=== PATIENT | female | born 1985 | race Caucasian/White ===

== ENCOUNTER 2019-03-17 11:59 | Inpatient (IN) | payer BC ==
[2019-03-17] MEDS ORDERED: Tranexamic Acid 1,000 MG in Sodium Chloride 0.9% 100 ML IV PRN ×2 (12:03→15:26)
[2019-03-17] MEDS ORDERED: Sodium Chloride 0.9% 10 ML Syringe FLUSH PRN (12:03)
[2019-03-17] MEDS ORDERED: Citric Acid/Sodium Citrate Solution 30 ML Cup PO ONE (12:03)
[2019-03-17] MEDS ORDERED: Oxytocin/Normal Saline 30 UNIT/500 ML BAG IV SCH (12:15)
[2019-03-17] MEDS ORDERED: Lactated Ringers 1,000 ML IV SCH ×2 (12:15→15:30)
[2019-03-17] MEDS: Lactated Ringers 1,000 ML IV SCH ×3 (12:35→17:51)
[2019-03-17] MEDS ORDERED: Oxytocin/Normal Saline 60 UNIT/1,000 ML BAG ONE (12:44)
[2019-03-17] MEDS ORDERED: ceFAZolin 2 GM in Premix Bag 1 BAG IV ONE (13:32)
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
[2019-03-17] MEDS ORDERED: ePHEDrine 50 MG/ML SDV IVPUSH PRN (15:26)
[2019-03-17] MEDS ORDERED: diphenhydrAMINE 50 MG/ML SDV IVPUSH PRN (15:26)
[2019-03-17] MEDS ORDERED: Docusate Sodium 100 MG Cap PO PRN (15:26)
[2019-03-17] MEDS ORDERED: Carboprost Tromethamine 250 MCG/1 ML Amp IM ONE (15:26)
[2019-03-17] MEDS ORDERED: Acetaminophen/oxyCODONE 325-5 MG Tab PO PRN ×2 (15:26)
[2019-03-17] MEDS ORDERED: Naloxone 2 MG/2 ML Syringe IVPUSH PRN (15:26)
[2019-03-17] MEDS ORDERED: Misoprostol 400 MCG (4 X 100 MCG TAB) RECTAL PRN (15:26)
[2019-03-17] MEDS ORDERED: Methylergonovine 0.2 MG/1 ML Amp IM PRN (15:26)
[2019-03-17] MEDS ORDERED: Ondansetron 4 MG/2 ML SDV IV PRN (15:26)
[2019-03-17] MEDS: Simethicone 80 MG Tab.Chew PO SCH ×2 (17:00→20:44)
[2019-03-17] MEDS ORDERED: Famotidine 20 MG/2 ML SDV IVPUSH PRN (17:02)
[2019-03-17] MEDS: Ketorolac 30 MG/ML SDV IVPUSH SCH (20:44)
[2019-03-17] MEDS: ceFAZolin 1 GM in Premix Bag 1 BAG IV SCH (21:19)
[2019-03-18] MEDS: Lactated Ringers 1,000 ML IV SCH (01:11)
[2019-03-18] MEDS: Ketorolac 30 MG/ML SDV IVPUSH SCH ×2 (03:39→08:52)
[2019-03-18] MEDS: ceFAZolin 1 GM in Premix Bag 1 BAG IV SCH ×2 (05:41→13:28)
--- NOTE | 2019-03-18 08:24 | PCM.SN ---
- Free Text/Narrative Note: Subjective: Patient is post-op day 1 from repeat LTc-sec Some nausea with 2 episodes of vomiting last night. Ambulating. Tolerating liquid diet- will eat breakfast this morning. Urinary catheter still in place- will get removed later this morning. Bleeding minimal. Small amount of blood on bandage. No cramping. No fever, chills, SOB, chest pain. Objective: Vitals: T97.3; BP87/57; RR16; P78 Cardiac: RRR, no murmur Pulm: Lungs clear to auscultation bilaterally. Abdomen: uterus firm and palpated 2 cm below umbilicus. No tender. Dressing is in place with small amount of bleeding noticed on outside of the bandage. Extremities: no swelling. compression stockings are on. Labs: RBC 3.63; Hbg 10.2; Hct 31.4 Assessment/plan: Post-op day 1 from repeat LT c-sec. doing well. Continue routine post- cares with education. Patient was seen by myself and Dr. Norris, assessment and plan are under advisement of Dr. Norris. Isaías Lovell, MS-III
--- NOTE | 2019-03-18 08:43 | OR ---
DATE: 03/17/2019 PREOPERATIVE DIAGNOSES: 1. A 34-year-old white female, G2, P1, at 38 weeks' gestation. 2. Spontaneous rupture of membranes. 3. Prior section. 4. A positive blood type. 5. Rubella nonimmune. 6. Group B strep negative. POSTOPERATIVE DIAGNOSES: 1. A 34-year-old, G2, now P2. 2. Viable female , scores 7 and 9, 3430 g/7 pounds 9 ounces. 3. Thirty eight weeks' gestation. 4. Repeat low transverse section. 5. . 6. Spontaneous rupture of membranes. 7. Prior section. 8. A positive blood type. 9. Rubella nonimmune. 10.Group B strep negative. PROCEDURE: Urgent repeat low transverse section. ASSISTANTS: Lizzy Sky MD; Isaías Lovell MS-III. ANESTHESIA: Spinal with excellent results. ESTIMATED BLOOD LOSS: 400 mL. COMPLICATIONS: None. FINDINGS: This delightful 34-year-old 2, para 1, presented to the clinic at 38 weeks' gestation with spontaneous rupture of membranes. She was subsequently admitted to the hospital. A nonstress test was reassuring. She received 2 g of Ancef IV for preop antibiotics. She was scheduled next week for her elective . However, due to the ruptured membranes, we elected to proceed with her repeat today. Her CBC was reassuring. DESCRIPTION OF PROCEDURE: She underwent spinal anesthesia with excellent results. A Mercado catheter was placed, and she was prepped and draped in usual sterile manner. Surgical marker had been used to zeferino her previous Pfannenstiel incision. A time-out was performed in my presence. A scalpel was used to incise the skin. Electrocautery was used down through the subcutaneous tissue to the fascia, which was divided transversely. Superior and inferior fascial flaps were developed with sharp and blunt dissection. The rectus was identified and divided in the midline. The peritoneum was identified and entered bluntly. The incision was opened until we had excellent visualization of the lower uterine segment. A large Isaías retractor was placed without difficulty. A stab incision was made into the lower uterine segment and extended bilaterally with blunt dissection. Bandage scissors were used to extend the uterine incision on the right side in a caudad direction with good results. The vertex of the baby was then visible and clear fluid was noted in the amniotic sac. The vertex was elevated up into the incision. Cord was noted to be looped around the neck, but it was loose and easily reduced. Vertex was delivered followed by the shoulders and the remainder of the . The father then announced that the gender was female. The cord was doubly clamped and cut and the baby was carried to the waiting nursery staff by Dr. Romero. A cord blood sample was obtained. The time of was noted to be 1436. scores were 7 and 9 at one and five minutes respectively, and the baby's weight was found to be 3430 g or 7 pounds 9 ounces. Baby had a strong cry at , and was dried, stimulated, and bulb suctioned, and brought up to the mom for [id number] contact, bonding, and breast-feeding. The placenta was removed and later inspected and found to be complete intact. Three-vessel cord was noted, and a marginal/[place] cord insertion. Appeared to be completely within normal limits. The uterus was wiped clean and dry, and the cervix was easily noted. The uterine incision edges were grasped with Jon forceps, and the uterus was closed with a running locking 0 Vicryl suture with excellent results. Incision was inspected and found to be hemostatic. Tubes and ovaries appeared within normal limits. Cyst of Morgagni was noted on the right side. The retractor was removed, and the gutters were inspected, found to be dry with no sign of clots. The final inspection appeared to be hemostatic. The area was irrigated, aspirated, and free of all clots. No sign of active bleeding. Once again, the incision was inspected and found to be clean, hemostatic. Peritoneum was closed with a running Vicryl suture with good results. The fascia was then closed with Maxon loop suture with good results. It was somewhat difficult due to the thick scarring. The subcutaneous area was then irrigated. Bleeders were electrocauterized, and the skin brought together with jessie. All instrument and sponge counts were correct. The patient tolerated the procedure well. Uterus remained firm, and Pitocin IV was running per protocol. The patient did well and was transferred to recovery in good condition with Pitocin running IV as noted. She continued to drain clear urine. Her estimated blood loss was 400 mL, and she is in good condition. The baby is [id number] and recovery with her. Both mom and baby will be followed with and postop and nursery routine orders and cares. Further management pending their clinical course. [facility] /[id number]
[2019-03-18] MEDS: Prenatal Multivitamin with Calcium/Folic Acid/Iron Tab PO SCH (08:51)
[2019-03-18] MEDS: Simethicone 80 MG Tab.Chew PO SCH ×4 (08:51→21:54)
[2019-03-18] MEDS ORDERED: Measles, Mumps & Rubella Vaccine 0.5 ML SDV SUBCUT ONE (09:00)
[2019-03-18] MEDS ORDERED: Oxytocin/Normal Saline 30 UNIT/500 ML BAG IV ONE (11:07)
[2019-03-18] MEDS: Acetaminophen 325 MG Tab PO PRN ×2 (13:33→21:54)
[2019-03-18] MEDS: Ibuprofen 800 MG Tab PO PRN (16:47)
[2019-03-19] MEDS: Acetaminophen 325 MG Tab PO PRN ×4 (02:03→20:04)
[2019-03-19] MEDS: Ibuprofen 800 MG Tab PO PRN ×3 (02:04→20:03)
[2019-03-19] MEDS: Calcium Carbonate 500 MG Tab.Chew PO PRN ×2 (02:49→20:02)
--- NOTE | 2019-03-19 07:42 | PCM.SN ---
- Free Text/Narrative Note: 03/19/2019 Subjective: Patient is post-op day 2 from repeat LTc-sec Ambulating. Tolerating regular diet. Urinating, stooling normally. Bleeding minimal. Small amount of blood on bandage. No cramping. going well. No fever, chills, SOB, chest pain. No concerns. Objective: Vitals: T98.4; BP100/62; RR16; P84; O2 sat 98% Cardiac: RRR, no murmur Pulm: Lungs clear to auscultation bilaterally. Abdomen: uterus firm and palpated 2 cm below umbilicus. Non tender. Dressing is in place with small amount of blood noticed on outside of the bandage. Extremities: no swelling. compression stockings are on. Labs: RBC 3.41; Hbg 9.7; Hct 29.8; platelets 245 Assessment/plan: Post-op day 2 from repeat LT c-sec. doing well. Continue routine post- cares with education. Patient was seen by myself and Dr. Norris, assessment and plan are under advisement of Dr. Norris. Isaías Lovell, MS-III
[2019-03-19] MEDS: Simethicone 80 MG Tab.Chew PO SCH ×4 (09:07→20:02)
[2019-03-19] MEDS: Prenatal Multivitamin with Calcium/Folic Acid/Iron Tab PO SCH (09:08)
[2019-03-19] MEDS ORDERED: Ketorolac 30 MG/ML SDV IVPUSH ONE (14:17)
[2019-03-19] MEDS ORDERED: Promethazine 25 MG/ML SDV ONE (14:17)
[2019-03-19] MEDS ORDERED: Ondansetron 4 MG/2 ML SDV IV ONE (14:17)
[2019-03-19] MEDS ORDERED: Lactated Ringers 1,000 ML IV ONE (14:17)
[2019-03-19] MEDS ORDERED: ePHEDrine 50 MG/ML SDV IV ONE (14:17)
[2019-03-19] MEDS ORDERED: Dexamethasone 4 MG/ML SDV IV ONE (14:17)
[2019-03-19] MEDS ORDERED: Sodium Bicarbonate 4.2% 2.5 MEQ/5 ML SDV ONE (14:17)
[2019-03-19] MEDS ORDERED: Morphine PF 1 MG/ML Amp ONE (14:17)
[2019-03-20] MEDS: Acetaminophen 325 MG Tab PO PRN ×2 (01:53→08:37)
[2019-03-20] MEDS: Ibuprofen 800 MG Tab PO PRN (04:09)
--- NOTE | 2019-03-20 08:16 | PCM.DCSUM1 ---
Discharge Summary - Hospital Course Free Text/Narrative:: Patient is post-op day 3 from repeat [facility]-sec Ambulating. Tolerating regular diet. Urinating, stooling normally. Bleeding minimal. Bandage was removed. No cramping. going well. No fever, chills, SOB, chest pain. No concerns. Brief History: Patient presented to the clinic with SROM and received an urgent with no complications. Delivered healthy, viable female infant. - Discharge Data Discharge Date: 03/20/19 Discharge Disposition: Home, Self-Care 01 Condition: Good - Discharge Diagnosis/Problem(s) (1) Delivery by section of full-term infant SNOMED Code(s): 622458156 ICD Code: O82 - ENCOUNTER FOR DELIVERY WITHOUT INDICATION Status: Acute Current Visit: Yes - Patient Summary/Data Consults: Consultations 03/17/19 15:52 Consult to Interface Control Officer [CONS] Routine - Patient Instructions Diet: Regular Diet as Tolerated Activity: No Lifting Over 20 Pounds, Rest and Relax Today Activity, Other: Pelvic rest 4 weeks Driving: May Drive Today Showering/Bathing: May Shower Wound/Incision Care: Keep Operative Site/Wound Site Clean and Dry Notify Provider of: Fever, Increased Pain, Swelling and Redness, Drainage, Nausea and/or Vomiting - Discharge Plan *PRESCRIPTION DRUG MONITORING PROGRAM REVIEWED*: Not Applicable *COPY OF PRESCRIPTION DRUG MONITORING REPORT IN PATIENT TAMIKO: Not Applicable Home Medications: Home Meds Cholecalciferol (Vitamin D3) [Vitamin D3] 400 units PO DAILY 12/02/15 [History] Ferrous Sulfate 325 mg PO BID 12/02/15 [History] PNV95/Ferrous Fumarate/FA [ Vitamins Tablet] 1 each PO DAILY 12/02/15 [ History] Famotidine 20 mg PO DAILY 03/17/19 [History] Acetaminophen [Tylenol] 650 mg PO Q6HR PRN tablet 03/20/19 [Rx] Docusate Sodium [Colace] 100 mg PO Q12HR PRN cap 03/20/19 [Rx] Ibuprofen [Motrin] 800 mg PO Q8H PRN tablet 03/20/19 [Rx] Vit with Ca/FA/Iron [ Plus Iron] 1 each PO DAILY tablet [Rx] Oxygen Therapy Mode: Room Air - Discharge Summary/Plan Comment DC Time >30 min.: Yes - General Info Date of Service: 03/20/19 Functional Status: Reports: Pain Controlled - Review of Systems General: Reports: Appetite. Denies: Fever, Chills HEENT: Denies: Headaches, Visual Changes Pulmonary: Denies: Shortness of Breath Cardiovascular: Denies: Chest Pain, Lightheadedness Gastrointestinal: Denies: Abdominal Pain, Constipation, Nausea, Vomiting Genitourinary: Reports: No Symptoms Neurological: Denies: Headache - Patient Data Vitals - Most Recent: Last Vital Signs Temp 98.0 F 03/20/19 04:00 Pulse 84 03/20/19 04:00 Resp 16 03/20/19 04:00 BP 102/64 03/20/19 04:00 Pulse Ox 99 03/20/19 04:00 Weight - Most Recent: 115.666 kg Med Orders - Current: Current Medications Acetaminophen (Tylenol) 650 mg PO Q6HR PRN PRN Reason: mild pain or fever Last Admin: 03/20/19 01:53 Dose: 650 mg Calcium Carbonate/Glycine (Tums) 1,000 mg PO Q2H PRN PRN Reason: Heartburn Last Admin: 03/19/19 20:02 Dose: 1,000 mg Diphenhydramine HCl (Benadryl) 25 mg IVPUSH Q6HR PRN PRN Reason: Itching or Nausea Docusate Sodium (Colace) 100 mg PO Q12HR PRN PRN Reason: Constipation Last Admin: 03/18/19 08:51 Dose: 100 mg Ephedrine Sulfate (Ephedrine Sulfate) 5 mg IVPUSH SEECOMMENT PRN PRN Reason: Other Famotidine (Pepcid) 20 mg IVPUSH Q6HR PRN PRN Reason: Nausea/Vomiting Last Admin: 03/17/19 20:05 Dose: 20 mg Tranexamic Acid 1,000 mg/ (Sodium Chloride) 110 mls @ 660 mls/hr IV ONETIME PRN PRN Reason: Bleeding Oxytocin/Sodium Chloride (Pitocin In Ns 30 Unit/500 Ml) 30 unit in 500 mls @ 2 mls/hr IV TITRATE DAREN; Protocol Last Titration: 03/17/19 17:30 Dose: 0 mls/hr Lactated Ringer's (Ringers, Lactated) 1,000 mls @ 125 mls/hr IV ASDIRECTED DAREN Last Admin: 03/18/19 01:11 Dose: 125 mls/hr Lactated Ringer's (Ringers, Lactated) 1,000 mls @ 500 mls/hr IV .[facility] Ibuprofen (Motrin) 800 mg PO Q8H PRN PRN Reason: mild pain or fever Last Admin: 03/20/19 04:09 Dose: 800 mg Methylergonovine Maleate (Methergine) 0.2 mg IM ONETIME PRN PRN Reason: Excessive Vaginal Bleeding Misoprostol (Cytotec) 800 mcg RECTAL ASDIRECTED PRN PRN Reason: Excessive bleeding Naloxone HCl (Narcan) 0.1 mg IVPUSH SEECOMMENT PRN PRN Reason: Respiratory Depression Ondansetron HCl (Zofran) 4 mg IV Q4HR PRN PRN Reason: Nausea/Vomiting Oxycodone/Acetaminophen (Percocet 325-5 Mg) 1 tab PO Q4HR PRN PRN Reason: Pain (moderate 4-6), use first Oxycodone/Acetaminophen (Percocet 325-5 Mg) 2 tab PO Q4HR PRN PRN Reason: Pain (moderate 4-6), use 2nd Prenat Multivit/[place]/Iron/Folic Ac ( Plus Iron) 1 each PO DAILY [facility] Last Admin: 03/19/19 09:08 Dose: 1 each Simethicone (Simethicone) 160 mg PO QID [facility] Last Admin: 03/19/19 20:02 Dose: 160 mg Sodium Chloride (Saline Flush) 10 ml FLUSH ASDIRECTED PRN PRN Reason: Keep Vein Open Discontinued Medications Carboprost Tromethamine (Hemabate Ds) 250 mcg IM ONETIME ONE Stop: 03/17/19 15:27 Last Admin: 03/17/19 18:03 Dose: Not Given Citric Acid/Sodium Citrate (Bicitra Solution) 30 ml PO ONETIME ONE Stop: 03/17/19 12:04 Last Admin: 03/17/19 13:03 Dose: 30 ml Dexamethasone (Dexamethasone) 8 mg IV .STK-MED ONE Stop: 03/19/19 14:18 Ephedrine Sulfate (Ephedrine Sulfate) 30 mg IV .STK-MED ONE Stop: 03/19/19 14:18 Oxytocin/Sodium Chloride (Pitocin In Ns 30 Unit/500 Ml) Confirm Administered Dose 60 unit in 1,000 mls @ as directed .ROUTE .STK-MED ONE Stop: 03/17/19 12:45 Cefazolin Sodium/Dextrose 2 gm (/ Premix) 50 mls @ 100 mls/hr IV ONETIME ONE Stop: 03/17/19 14:01 Last Admin: 03/17/19 14:10 Dose: 100 mls/hr Tranexamic Acid 1,000 mg/ (Sodium Chloride) 110 mls @ 660 mls/hr IV ONETIME PRN PRN Reason: Bleeding Cefazolin Sodium/Dextrose 1 gm (/ Premix) 50 mls @ 100 mls/hr IV Q8HR DAREN Stop: 03/18/19 14:29 Last Admin: 03/18/19 13:28 Dose: 100 mls/hr Oxytocin/Sodium Chloride (Pitocin In Ns 30 Unit/500 Ml) 30 unit in 500 mls @ as directed IV .STK-MED ONE Stop: 03/18/19 11:08 Lactated Ringer's (Ringers, Lactated) 1,000 mls @ as directed IV .STK-MED ONE Stop: 03/19/19 14:18 Ketorolac Tromethamine (Toradol) 15 mg IVPUSH Q6H DAREN Stop: 03/18/19 09:01 Last Admin: 03/18/19 08:52 Dose: 15 mg Ketorolac Tromethamine (Toradol) 30 mg IVPUSH .STK-MED ONE Stop: 03/19/19 14:18 Measles/Mumps/Rubella Vaccine Live (M-M-R Ii Vaccine) 0.5 ml SUBCUT .ONCE ONE Stop: 03/18/19 09:01 Last Admin: 03/18/19 08:54 Dose: 0.5 ml Morphine Sulfate (Duramorph Pf) 0.2 mg .XX .STK-MED ONE Stop: 03/19/19 14:18 Ondansetron HCl (Zofran) 4 mg IV .STK-MED ONE Stop: 03/19/19 14:18 Promethazine HCl (Phenergan) 12.5 mg .XX .STK-MED ONE Stop: 03/19/19 14:18 Sodium Bicarbonate (Sodium Bicarbonate 4.2%) 0.5 meq .XX .STK-MED ONE Stop: 03/19/19 14:18 - Exam General: Reports: Alert, Oriented HEENT: Reports: Mucous Membr. Moist/[place] Lungs: Reports: Clear to Auscultation, Normal Respiratory Effort Cardiovascular: Reports: Regular Rate, Regular Rhythm GI/Abdominal Exam: Normal Bowel Sounds, Soft, Non-Tender, No Organomegaly, No Distention, No Mass, Other (Staple incision is intact. No erythema or increased warmth. ) Extremities: Normal Inspection, Non-Tender, No Pedal Edema, Normal Capillary Refill Skin: Reports: Warm, Dry, Intact Wound/Incisions: Reports: Healing Well, No Drainage. Denies: Erythema Psy/Mental Status: Reports: Alert, Normal Affect, Normal Mood
[2019-03-20] MEDS: Prenatal Multivitamin with Calcium/Folic Acid/Iron Tab PO SCH (08:37)
[2019-03-20] MEDS: Simethicone 80 MG Tab.Chew PO SCH ×2 (08:37→08:38)
[2019-03-20 11:38] VITALS: BP 118/60
== END 2019-03-20 11:30 | disposition home or self-care (01) | DRG 540 ==
LOC: DL.OB 11:59 → OBSVTOIN 14:36 → DL.OB 03-18 01:21
PROVIDERS: ADMIT Family Medicine; ATTEND Family Medicine
PROC: 10D00Z1 Extraction of Products of Conception, Low, Open Approach (ICD-10-PCS; principal; 2019-03-17)
DX: O34.211 Maternal care for low transverse scar from previous cesarean delivery (principal); Z3A.38 38 weeks gestation of pregnancy; Z37.0 Single live birth; Z23 Encounter for immunization
CPT/HCPCS: 36415; 85025; 85027; 86850; 86900; 86901; 90707; 94010; A4217; A9270-GY; G0010; J0690; J1100; J1885; J2274; J2405; J2550; J2590; J3490; J7120